=== PATIENT | male | born 1955 | race Caucasian/White ===

== ENCOUNTER 2017-03-03 07:10 | Emergency (ER) | payer OTHER ==
[~2017-03-03] VITALS: Ht 167.6 cm; Wt 94.5 kg
[2017-03-03 07:12] VITALS: BP 114/76
[2017-03-03] MEDS ORDERED: METH2.5T PO (07:45)
[2017-03-03] MEDS ORDERED: SIMV40TA3 PO (07:46)
[2017-03-03] MEDS ORDERED: HYDR-883 PO (07:46)
[2017-03-03] MEDS ORDERED: DEXAMETHASONE 4 MG TABLET ONE (07:48)
[2017-03-03] MEDS ORDERED: DEXAMETHASONE 4 MG TABLET PO ONE (08:00)
== END 2017-03-03 08:04 | disposition home or self-care (01) ==
LOC: ED 08:00
DX: J02.0 Streptococcal pharyngitis (principal); M06.9 Rheumatoid arthritis, unspecified
CPT/HCPCS: 99283

== ENCOUNTER → 2017-09-10 | Outpatient (CLI) | payer OTHER ==
[~2017-09-10] MED LIST: HYDR-883 PO; METH2.5T PO; SIMV40TA3 PO
== END | disposition home or self-care (01) ==
LOC: CFH 07:48
PROVIDERS: ATTEND Internal Medicine Cardiovascular Disease
DX: I10 Essential (primary) hypertension (principal); R06.02 Shortness of breath
CPT/HCPCS: 78452; 93017; A9502

== ENCOUNTER 2018-04-24 06:08 | Day surgery (SDC) | payer OTHER ==
[~2018-04-24] VITALS: Ht 167.6 cm; Wt 73.6 kg
[~2018-04-24 06:08] MED LIST changes: +ASPI-496 PO; +CHOL200024 PO; +DIPH25CA61 PO; +GARL1TAB2 PO; +GOLI50PE INJ; +HYDR-3237 PO; +HYDR-3652 PO; -HYDR-883 PO; +LACT1CAP61 PO; +OMEG1CAP34 PO; +POTA99TA3 PO; +SIMV10TA3 PO; +TRIA1TAB3 PO; +VITA1TAB19 PO; +ZOLP10TA PO
[2018-04-24] MEDS ORDERED: LACTATED RINGERS 1,000 ML IV SCH (07:08)
[2018-04-24 07:36] VITALS: BP 113/75
[2018-04-24] MEDS ORDERED: BUPIVACAINE/PF 0.5% ONE (07:36)
[2018-04-24] MEDS ORDERED: FENTANYL PF 250 MCG/5ML ONE (07:48)
[2018-04-24] MEDS ORDERED: MIDAZOLAM 1 MG/ML, 2ML ONE (07:48)
[2018-04-24] MEDS ORDERED: ONDANSETRON 2MG/ML, 2ML ONE (08:10)
[2018-04-24] MEDS ORDERED: GLYCOPYRROLATE 0.2MG/1ML, 5ML ONE (08:10)
[2018-04-24] MEDS ORDERED: NEOSTIGMINE 1 MG/ML, 10ML ONE (08:10)
[2018-04-24] MEDS ORDERED: DEXAMETHASONE 4 MG/ML, 1ML ONE (08:10)
[2018-04-24] MEDS ORDERED: PROPOFOL 10 MG/ML, 20ML ONE (08:10)
[2018-04-24] MEDS ORDERED: CEFAZOLIN 1,000 MG ONE (08:10)
[2018-04-24] MEDS ORDERED: ROCURONIUM 10 MG/ML,10ML ONE (08:10)
[2018-04-24] MEDS ORDERED: ALBUTEROL SULFATE 2.5 MG/3 ML NPPB PRN (08:30)
[2018-04-24] MEDS ORDERED: ACETAMINOPHEN 325 MG TABLET PO PRN (08:30)
[2018-04-24] MEDS ORDERED: KETOROLAC 30 MG/1 ML IV PRN (08:30)
[2018-04-24] MEDS ORDERED: DIAZEPAM 5 MG/ML, 2ML IVPush PRN (08:30)
[2018-04-24] MEDS ORDERED: hydrALAzine 20 MG/ML, 1ML IV PRN (08:30)
[2018-04-24] MEDS ORDERED: MEPERIDINE/PF 25MG/0.5ML IVPush PRN (08:30)
[2018-04-24] MEDS ORDERED: PROMETHAZINE 25 MG/ML, 1ML IV PRN (08:30)
[2018-04-24] MEDS ORDERED: HYDROmorphone 2 MG/ML, 1ML IVPush PRN (08:30)
[2018-04-24] MEDS ORDERED: OXYcodone 5 MG/5 ML ORAL.SOL UDC PO PRN (08:30)
[2018-04-24] MEDS ORDERED: LABETALOL 5MG/ML, 20ML IV PRN (08:30)
[2018-04-24] MEDS ORDERED: KETOROLAC 30 MG/1 ML ONE (10:20)
[2018-04-24] MEDS ORDERED: FENTANYL PF 100 MCG/2ML ONE (10:33)
[2018-04-24] MEDS ORDERED: OXYcodone 5 MG/5 ML ORAL.SOL UDC ONE (10:34)
[2018-04-24] MEDS: FENTANYL PF 100 MCG/2ML IV PRN ×2 (10:35→10:45)
[2018-04-24] MEDS ORDERED: HYDROmorphone 1 MG/ML, 1ML ONE (10:49)
== END 2018-04-24 12:15 | disposition home or self-care (01) ==
LOC: OUT 06:08
PROVIDERS: ATTEND Surgery
DX: K40.90 Unilateral inguinal hernia, without obstruction or gangrene, not specified as recurrent (principal); I10 Essential (primary) hypertension; E78.5 Hyperlipidemia, unspecified; Z79.82 Long term (current) use of aspirin; F41.9 Anxiety disorder, unspecified; E78.00 Pure hypercholesterolemia, unspecified; Z92.25 Personal history of immunosuppression therapy
CPT/HCPCS: 49650; 71045; C1781; J0690; J1100; J1885; J2250; J2405; J2704; J2710; J3010; J3490; J7120; S2900

== ENCOUNTER 2018-05-16 04:52 | Emergency (ER) | payer OTHER ==
[~2018-05-16] VITALS: Ht 167.6 cm; Wt 76.8 kg
--- NOTE | 2018-05-16 04:59 | NUR ---
PT HERE FOR SORE THROAT X 5 DAYS. PT WANTS TO GET IT CHECKED OUT. VSS. CALL LIGHT IN REACH
[2018-05-16] MEDS ORDERED: DEXAMETHASONE 4 MG TABLET ONE (05:56)
[2018-05-16] MEDS ORDERED: DEXAMETHASONE 4 MG TABLET PO ONE (06:00)
[2018-05-16] MEDS ORDERED: IBUPROFEN 600 MG TABLET PO ONE (06:00)
[2018-05-16 06:41] VITALS: BP 110/68
[2018-05-16] MEDS ORDERED: IBUPROFEN 600 MG TABLET ONE (06:42)
--- NOTE | 2018-05-16 06:50 | NUR ---
PT MEDICATED. WAITING FOR DISCHARGE PAPERS. VSS. CALL LIGHT IN REACH
--- NOTE | 2018-05-16 06:56 | NUR ---
REPORT FROM TERI BHATTI.
--- NOTE | 2018-05-16 06:58 | NUR ---
Patient given discharge instructions and they have confirmed that they understand the instructions. Patient ambulatory with steady gait.
== END 2018-05-16 06:59 | disposition home or self-care (01) ==
LOC: ED 06:50
DX: J02.9 Acute pharyngitis, unspecified (principal); M06.9 Rheumatoid arthritis, unspecified; Z87.891 Personal history of nicotine dependence
CPT/HCPCS: 87081; 87880; 93005; 99284